=== PATIENT | male | born 1960 | race Caucasian/White ===

== ENCOUNTER 2021-08-17 12:14 | Emergency (ER) | payer MEDICARE, OTHER ==
[~2021-08-17] VITALS: Ht 165.1 cm; Wt 73.0 kg
[2021-08-17 12:16] VITALS: BP 184/70
[2021-08-17] MEDS ORDERED: KETOROLAC 15 MG/ML VIAL. IM ONE (12:45)
[2021-08-17] MEDS ORDERED: ORPHENADRINE CITRATE 60 MG/2 ML VIAL. IM ONE (12:45)
[2021-08-17] MEDS ORDERED: ORPH-16 PO (13:36)
[2021-08-17] MEDS ORDERED: IBUP800T19 PO (13:36)
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
== END 2021-08-17 13:47 | disposition home or self-care (01) ==
LOC: ER 12:14
DX: S39.012A Strain of muscle, fascia and tendon of lower back, initial encounter (principal); X58.XXXA Exposure to other specified factors, initial encounter; Y93.89 Activity, other specified; Y92.89 Other specified places as the place of occurrence of the external cause; Y99.8 Other external cause status
CPT/HCPCS: 96372; 99284; J1885; J2360

== ENCOUNTER 2021-09-22 15:06 | Emergency (ER) | payer MEDICARE, OTHER ==
[~2021-09-22] VITALS: Ht 165.1 cm; Wt 73.0 kg
[~2021-09-22 15:06] MED LIST: IBUP800T19 PO; ORPH-16 PO
[2021-09-22 16:10] VITALS: BP 184/70
[2021-09-22] MEDS ORDERED: ACETAMINOPHEN 500 MG TABLET PO ONE (17:15)
[2021-09-22] MEDS ORDERED: BENZONATATE 100 MG CAPSULE. PO ONE (17:15)
[2021-09-22 18:09] LABS: BASO % 0 % (0-3); EOS # 0.2 x10^3/uL (0.0-0.7); EOS % 3 % (0-3); HEMATOCRIT 43.4 % (39.0-53.0); HEMOGLOBIN 14.8 g/dL (13.0-17.5); LYMPH # 1.4 x10^3/uL (1.0-4.8); LYMPH % 19 % (24-48); MEAN CORPUSCULAR HEMOGLOBIN 31 pg (25-35); MEAN CORPUSCULAR HGB CONC 34 g/dL (31-37); MEAN CORPUSCULAR VOLUME 91 fL (79-100); MONO # 1.1 x10^3/uL (0.0-1.1); MONO % 15 % (0-9); NEUT # 4.6 x10^3uL (1.8-7.7); NEUT % 63 % (31-73); PLATELET COUNT 186 x10^3/uL (140-400); RED BLOOD COUNT 4.77 x10^6/uL (4.30-5.70); RED CELL DISTRIBUTION WIDTH 12.8 % (11.5-14.5); WHITE BLOOD COUNT 7.3 x10^3/uL (4.0-11.0)
[2021-09-22] MEDS ORDERED: FLUORESCEIN 1MG EYE STRIP. OD ONE (18:15)
[2021-09-22 18:18] LABS: CALCIUM 9.4 mg/dL (8.5-10.1); CREATININE 1.5 mg/dL (0.7-1.3); GFR 47.4; POTASSIUM 4.9 mmol/L (3.5-5.1)
[2021-09-22 18:24] LABS: ALBUMIN 4.2 g/dL (3.4-5.0); ALBUMIN/GLOBULIN RATIO 1.1 (1.0-1.7); TOTAL BILIRUBIN 0.7 mg/dL (0.2-1.0); TOTAL PROTEIN 8.1 g/dL (6.4-8.2)
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
[2021-09-22 18:53] LABS: INFLUENZA A PATIENT NEGATIVE (NEGATIVE); INFLUENZA B PATIENT NEGATIVE (NEGATIVE)
[2021-09-22] MEDS ORDERED: BENZ150C3 PO (19:07)
--- NOTE | 2021-09-22 19:54 | RAD ---
EXAM: CHEST ONE VIEW. HISTORY: Cough, fever. COMPARISON: None. FINDINGS: A frontal view of the chest is obtained. There are no confluent infiltrates. There is no pneumothorax or pleural effusion. The heart is not en larged. IMPRESSION: 1. No confluent infiltrates. Electronically signed by: Yossi Magdaleno MD (09/22/2021 7:52 PM) [id number]
== END 2021-09-22 19:16 | disposition home or self-care (01) ==
LOC: ER 15:06
DX: J40 Bronchitis, not specified as acute or chronic (principal); Z20.822 Contact with and (suspected) exposure to COVID-19
CPT/HCPCS: 36415; 71045; 80053; 83605; 85025; 87040; 87426; 87804; 99284; C9803; U0003